=== PATIENT | female | born 1980 | race Caucasian/White ===

== ENCOUNTER 2016-12-09 06:21 | Day surgery (SDC) | payer MEDICAID ==
[2016-12-07 14:10] LABS: BASOPHILS 0.2 % (0-2); EOSINOPHILS 0.8 % (0-7); HEMATOCRIT 46.2 % (36.0-48.0); HEMOGLOBIN 14.7 g/dL (12-16); IMMATURE GRANULOCYTES 0.3 % (0-5); LYMPHOCYTES 22.9 % (15-50); MCH 28.8 pg (26.0-34.0); MCHC 31.8 g/dL (31.0-37.0); MCV 90.6 fL (80.0-100.0); MEAN PLATELET VOLUME 9.7 fL (7.4-10.4); MONOCYTES 5.4 % (2-11); NEUTROPHILS 70.4 % (40-80); PLATELET COUNT 280 10x3/uL (130-400); RDW 14.3 % (11.5-14.5); WBC 9.5 10x3/uL (4.8-10.8)
[~2016-12-09] VITALS: Ht 170.2 cm; Wt 103.4 kg
[~2016-12-09 06:21] MED LIST: BUPROPION XL300 MG PO; CARAFATE1 G PO; OMEPRAZOLE20 M1 PO; XANAX1 MG PO
[2016-12-09 06:25] VITALS: BP 110/64; Ht 170.2 cm; Wt 103.4 kg
[2016-12-09 06:37] LABS: HCG URINE NEGATIVE (NEGATIVE)
--- NOTE | 2016-12-09 08:47 | HP ---
PATIENT: JESSENIA GARCÍA MEDICAL RECORD: [id number] ACCOUNT: [id number] LOCATION:LINK : 82 ADMISSION DATE: 12/09/16 HISTORY AND PHYSICAL EXAMINATION HISTORY OF PRESENT ILLNESS: This patient is a 36-year-old 7, para 7 female who desires sterilization by tubal ligation or salpingectomy. CURRENT MEDICATIONS: Include Wellbutrin, Xanax, Prilosec, Carafate. PREVIOUS SURGERIES: None. MEDICAL PROBLEMS: Denies heart disease, diabetes, and hypertension. FAMILY HISTORY: Positive for lung cancer, diabetes, depression. SOCIAL HISTORY: The patient is with 7 children, smoker, approximately half a pack a day and she has pledged not to smoke before surgery. Ethanol, predominantly drinks beer. REVIEW OF SYSTEMS: No chest pain, no dyspnea. PHYSICAL EXAMINATION: GENERAL: The patient is morbidly obese. VITAL SIGNS: Weight 231, blood pressure 100/60. HEENT: Grossly unremarkable. LUNGS: Clear. HEART: Regular rate and rhythm. ABDOMEN: Soft, obese, and nontender. PELVIC: Deferred for anesthesia. EXTREMITIES: No cyanosis, clubbing or edema. NEUROLOGIC: Grossly intact. IMPRESSION: Desires sterilization. PLAN: Laparoscopic tubal ligation or salpingectomy to be scheduled for December 09. I have discussed with the patient potential risks of surgery, including anesthesia, infection, bleeding, injury to other organs as well as potential failure of all methods of tubal sterilization. TRANSINT:[id number] Voice Confirmation ID: [id number] DOCUMENT ID: [id number] BITA COLLADO MD at 0847 CC: [id number] DICTATION DATE: 12/07/16 1610 ADVERTISING CAMPAIGN MANAGER: 12/07/16 1651 [facility] [address] [place] [address]
--- NOTE | 2016-12-21 07:47 | OP ---
PATIENT NAME: JESSENIA GARCÍA MEDICAL RECORD: [id number] :82 [facility] ADMISS[facility] DATE: SURGEON: BITA COLLADO MD DATE OF OPERATION: 12/09/2016 PREOPERATIVE DIAGNOSIS: Undesired fertility. POSTOPERATIVE DIAGNOSIS: Undesired fertility. PROCEDURE: Laparoscopy with bilateral salpingectomy. ANESTHESIA: General. FINDINGS: Normal pelvic anatomy. ESTIMATED BLOOD LOSS: Minimal. COMPLICATIONS OF PROCEDURE: None. OPERATIVE NOTE: The patient was taken to the OR and under adequate general anesthesia, prepped and draped in the usual manner for abdominal procedures with legs in floating boot Bryant stirrups. The vagina had also been prepped as was the peritoneum. Intrauterine manipulator was placed and stabilized with a tenaculum. Bladder was catheterized with Raymond catheter. A vertical incision was made at the umbilicus at 6 o'clock and extended through subcutaneous tissue, fascia and peritoneum under direct visualization. The laparoscopic trocar sleeve was then inserted followed by the laparoscope. Findings were as listed above. A suprapubic incision was then made under direct visualization with placement of a trocar sleeve and in order to manipulate pelvic organs. A third puncture was made in the left lower quadrant under direct visualization. There were no abnormalities of the cervix, tubes, or pelvis that were visible in the abdomen. The right fallopian tube was addressed. Bipolar cautery and the Harmonic scalpel were used to excise the entire portion of the right tube. Identical procedure was then carried out on the left. The tubes were then removed through the suprapubic incision without difficulty and sent to pathology for further evaluation. Pelvis was then copiously irrigated and suctioned and hemostasis again confirmed. Abdomen was deflated reinflated and hemostasis again confirmed. All instruments were removed from the abdomen and pelvis. Fascial layer at the umbilicus and suprapubic incisions closed with a single interrupted #1 Vicryl sutures. Skin incisions reapproximated with 2-0 plain gut sutures. Dermabond was applied followed by Steri-Strips dressings. The patient went to recovery area in good condition. TRANSINT:[id number] Voice Confirmation ID: [id number] DOCUMENT ID: [id number] BITA COLLADO MD at 0747 CC: [id number] DICTATION DATE: 12/09/16 0853 OIL WELL GUN PERFORATOR OPERATOR: 12/09/16 1420 [facility] 12/09/16 [facility] [address] [place] [address]
== END 2016-12-09 12:10 | disposition home or self-care (01) ==
LOC: D.OPS 06:21 → D.PAN 07:30 → D.OPS 07:30
PROVIDERS: Obstetrics & Gynecology
DX: Z30.2 Encounter for sterilization (principal); N83.8 Other noninflammatory disorders of ovary, fallopian tube and broad ligament